=== PATIENT | male | born 1945 | race Caucasian/White ===

== ENCOUNTER → 2018-11-08 | Outpatient (REF) | payer MEDICARE ==
[~2018-11-08] MED LIST: AVODART0.5 MG PO; CIPROFLOXACN500 MG PO; LEVOTHYROXIN100 MC1 PO; PREDNISONE1 MG PO; SIMVASTATIN10 MG PO
[2018-11-08 17:05] LABS: HEMATOCRIT 46.3 % (39.0-50.0); HEMOGLOBIN 15.3 g/dl (14.0-18.0); MEAN CELL VOLUME 92.2 fL CALC (80.0-100.0); MEAN CORPUSCULAR HGB 30.5 pG CALC (26.0-32.0); RED BLOOD COUNT 5.02 mill/uL (4.70-6.10); RED CELL DISTRI WIDTH 12.1 % (11.5-15.5)
[2018-11-08 17:28] LABS: ALBUMIN 4.1 g/dL (3.2-5.0); ALKALINE PHOSPHATASE 78 u/l (38-126); ANION GAP 14 (6-22 (CALC)); BILIRUBIN, TOTAL 0.3 mg/dL (0.0-1.4); BUN 17 mg/dL (8-23); BUN/CREATININE RATIO 17 (12-20 (CALC)); CARBON DIOXIDE 28 mmol/l (22-30); CHLORIDE 101 mmol/l (95-108); GFR > 60 ML/MIN (>=60 (CALC)); GFR FOR AFR.AMER. > 60 ML/MIN (>=60 (CALC)); POTASSIUM 4.7 mmol/l (3.5-5.1); SGOT/AST 27 u/l (19-48); SODIUM 138 mmol/l (137-146); TOTAL PROTEIN 7.2 g/dL (6.3-8.2)
== END | disposition home or self-care (01) ==
LOC: CT 16:00
PROVIDERS: ATTEND Internal Medicine
DX: M54.5 Low back pain (principal); K59.00 Constipation, unspecified; R10.9 Unspecified abdominal pain; W19.XXXA Unspecified fall, initial encounter; E03.9 Hypothyroidism, unspecified; I10 Essential (primary) hypertension; N40.1 Benign prostatic hyperplasia with lower urinary tract symptoms; R01.1 Cardiac murmur, unspecified

== ENCOUNTER 2018-11-17 07:24 | Day surgery (SDC) | payer MEDICARE ==
[2018-11-17 10:44] VITALS: BP 114/71
== END 2018-11-17 10:00 | disposition home or self-care (01) ==
LOC: ENDO 07:24 → ORM 11:15
PROVIDERS: ATTEND Surgery
PROC: 0DB48ZX Excision of Esophagogastric Junction, Via Natural or Artificial Opening Endoscopic, Diagnostic (ICD-10-PCS; principal; 2018-11-17)
PROC: 0DB78ZX Excision of Stomach, Pylorus, Via Natural or Artificial Opening Endoscopic, Diagnostic (ICD-10-PCS; 2018-11-17)
PROC: 0DJD8ZZ Inspection of Lower Intestinal Tract, Via Natural or Artificial Opening Endoscopic (ICD-10-PCS; 2018-11-17)
DX: K59.00 Constipation, unspecified (principal); K29.60 Other gastritis without bleeding; K44.9 Diaphragmatic hernia without obstruction or gangrene; S32.010D Wedge compression fracture of first lumbar vertebra, subsequent encounter for fracture with routine healing; W11.XXXD Fall on and from ladder, subsequent encounter; Z87.891 Personal history of nicotine dependence

== ENCOUNTER 2018-12-08 07:12 | Day surgery (SDC) | payer MEDICARE ==
[2018-12-08] MEDS ORDERED: METAMUCIL28 % PO (07:39)
[2018-12-08 09:29] VITALS: BP 166/92
== END 2018-12-08 09:57 | disposition home or self-care (01) ==
LOC: ORM 07:12
PROVIDERS: ATTEND Anesthesiology Pain Medicine
PROC: 3E0T3BZ Introduction of Anesthetic Agent into Peripheral Nerves and Plexi, Percutaneous Approach (ICD-10-PCS; principal; 2018-12-08)
PROC: 3E0T33Z Introduction of Anti-inflammatory into Peripheral Nerves and Plexi, Percutaneous Approach (ICD-10-PCS; 2018-12-08)
PROC: BR161ZZ Fluoroscopy of Lumbar Facet Joint(s) using Low Osmolar Contrast (ICD-10-PCS; 2018-12-08)
PROC: 3E0T3BZ Introduction of Anesthetic Agent into Peripheral Nerves and Plexi, Percutaneous Approach (ICD-10-PCS; 2018-12-08)
PROC: 3E0T33Z Introduction of Anti-inflammatory into Peripheral Nerves and Plexi, Percutaneous Approach (ICD-10-PCS; 2018-12-08)
DX: M54.5 Low back pain (principal); Z91.81 History of falling

== ENCOUNTER 2018-12-22 06:43 | Day surgery (SDC) | payer MEDICARE ==
[~2018-12-22] VITALS: Ht 177.8 cm; Wt 77.6 kg
[~2018-12-22 06:43] MED LIST changes: +METAMUCIL28 % PO
[2018-12-22 09:55] VITALS: BP 167/88
== END 2018-12-22 09:25 | disposition home or self-care (01) ==
LOC: ORM 06:43
PROVIDERS: ATTEND Anesthesiology Pain Medicine
PROC: 3E0T33Z Introduction of Anti-inflammatory into Peripheral Nerves and Plexi, Percutaneous Approach (ICD-10-PCS; principal; 2018-12-22)
PROC: 3E0T3BZ Introduction of Anesthetic Agent into Peripheral Nerves and Plexi, Percutaneous Approach (ICD-10-PCS; 2018-12-22)
PROC: BR161ZZ Fluoroscopy of Lumbar Facet Joint(s) using Low Osmolar Contrast (ICD-10-PCS; 2018-12-22)
PROC: 3E0T3BZ Introduction of Anesthetic Agent into Peripheral Nerves and Plexi, Percutaneous Approach (ICD-10-PCS; 2018-12-22)
PROC: 3E0T33Z Introduction of Anti-inflammatory into Peripheral Nerves and Plexi, Percutaneous Approach (ICD-10-PCS; 2018-12-22)
DX: M54.5 Low back pain (principal); Z91.81 History of falling

== ENCOUNTER 2019-01-05 06:28 | Day surgery (SDC) | payer MEDICARE ==
[2019-01-05 12:49] VITALS: BP 137/90
== END 2019-01-05 09:25 | disposition home or self-care (01) ==
LOC: ORM 06:28
PROVIDERS: ATTEND Anesthesiology Pain Medicine
PROC: 3E0T3TZ Introduction of Destructive Agent into Peripheral Nerves and Plexi, Percutaneous Approach (ICD-10-PCS; principal; 2019-01-05)
PROC: BR161ZZ Fluoroscopy of Lumbar Facet Joint(s) using Low Osmolar Contrast (ICD-10-PCS; 2019-01-05)
PROC: 3E0T3TZ Introduction of Destructive Agent into Peripheral Nerves and Plexi, Percutaneous Approach (ICD-10-PCS; 2019-01-05)
DX: M54.5 Low back pain (principal); M12.9 Arthropathy, unspecified; M79.2 Neuralgia and neuritis, unspecified; Z91.81 History of falling

== ENCOUNTER 2019-03-02 06:54 | Day surgery (SDC) | payer MEDICARE ==
[~2019-03-02] VITALS: Ht 157.5 cm; Wt 77.1 kg
[~2019-03-02 06:54] MED LIST changes: +TRAMADOL HCL50 MG PO
[2019-03-02 09:01] VITALS: BP 173/91
== END 2019-03-02 09:35 | disposition home or self-care (01) ==
LOC: ORM 06:54
PROVIDERS: ATTEND Anesthesiology Pain Medicine
PROC: 3E0T3TZ Introduction of Destructive Agent into Peripheral Nerves and Plexi, Percutaneous Approach (ICD-10-PCS; principal; 2019-03-02)
PROC: 3E0T3TZ Introduction of Destructive Agent into Peripheral Nerves and Plexi, Percutaneous Approach (ICD-10-PCS; 2019-03-02)
PROC: BR161ZZ Fluoroscopy of Lumbar Facet Joint(s) using Low Osmolar Contrast (ICD-10-PCS; 2019-03-02)
PROC: BR161ZZ Fluoroscopy of Lumbar Facet Joint(s) using Low Osmolar Contrast (ICD-10-PCS; 2019-03-02)
DX: M54.5 Low back pain (principal)

== ENCOUNTER 2021-12-18 10:18 | Observation (INO) | payer MEDICARE ==
[2021-12-18] VITALS (34 sets, daily range): BP systolic 94–158; BP diastolic 56–110
[~2021-12-18] VITALS: Ht 157.5 cm; Wt 75.0 kg
[~2021-12-18 10:18] MED LIST changes: -AVODART0.5 MG PO; +LORATADINE10 M1 PO; +TAMSULOSIN HCL0.4 MG PO
--- NOTE | 2021-12-18 10:18 | NUR ---
PT BROUGHT TO ROOM FROM OUTPATIENT OR W/RAPID HEARTRATE. PT HERE FOR COLONOSCOPY, DURING PREOP TEST WAS FOUND TO HAVE HR OF 161.
[2021-12-18] MEDS ORDERED: AVODART0.5 MG PO (10:56)
[2021-12-18 11:08] LABS: HEMATOCRIT 48.4 % (39.0-50.0); HEMOGLOBIN 15.8 g/dl (14.0-18.0); IMMATURE GRANULOCYTES 0.1 % (0.0-5.0); MEAN CELL VOLUME 92.9 fL CALC (80.0-100.0); MEAN CORPUSCULAR HGB 30.3 pG CALC (26.0-32.0); MEAN CORPUSCULAR HGB CONC 32.6 g/dL CAL (32.0-36.0); NEUT# 4.18 thou/uL (1.82-7.42); RED BLOOD COUNT 5.21 mill/uL (4.70-6.10); RED CELL DISTRI WIDTH 12.9 % (11.5-15.5)
[2021-12-18 11:39] LABS: ALBUMIN 3.9 g/dL (3.2-5.0); ALKALINE PHOSPHATASE 61 u/l (38-126); ANION GAP 13 (6-22 (CALC)); BILIRUBIN, TOTAL 0.7 mg/dL (0.0-1.4); BUN 17 mg/dL (8-23); BUN/CREATININE RATIO 14 (12-20 (CALC)); CARBON DIOXIDE 26 mmol/l (22-30); CHLORIDE 105 mmol/l (95-108); CREATININE 1.2 mg/dL (0.7-1.3); GFR 59 ML/MIN (>=60 (CALC)); GFR FOR AFR.AMER. > 60 ML/MIN (>=60 (CALC)); POTASSIUM 4.6 mmol/l (3.5-5.1); SGOT/AST 32 u/l (19-48); SODIUM 139 mmol/l (137-146); TOTAL PROTEIN 7.3 g/dL (6.3-8.2)
[2021-12-18] MEDS ORDERED: TAMSULOSIN HCL0.4 MG PO (11:47)
[2021-12-18 12:09] LABS: TSH, 3RD GENERATION 1.2 uIU/mL (0.47 - 4.68)
--- NOTE | 2021-12-18 13:00 | NUR ---
REPORT CALLED TO MARKOS SHARPE AT THIS TIME
--- NOTE | 2021-12-18 13:35 | NUR ---
PT TO ROOM PER W/C, ALERT/ORIENTED X3, NO CHEST PAIN, NO PALPITATIONS, NO SOB, MAEW, VITAL SIGNS ATRIAL FLUTTER, BLOOD PRESSURE 148/103,
--- NOTE | 2021-12-18 15:13 | NUR ---
pt up to bedside commode. denies complaints of chest pain or sob. pt watching tv, heart rate remains in the 100's.
--- NOTE | 2021-12-18 16:03 | NUR ---
REASSESSMENT OF PT. NO CHANGES AT THIS TIME
--- NOTE | 2021-12-18 17:17 | NUR ---
PTS AT BEDSIDE, REMAINS IN AFLUTTER 3-1, BLOOD PRESSURE HAS DECREASED TO 126/83, REMAINS PAIN FREE, HAS NO COMPLAINTS, WATCHING TV AND LAUGHING WITH .
[2021-12-19] VITALS (13 sets, daily range): BP systolic 113–149; BP diastolic 84–96
[2021-12-19 06:07] LABS: HEMATOCRIT 47.6 % (39.0-50.0); HEMOGLOBIN 15.6 g/dl (14.0-18.0); MEAN CELL VOLUME 91.9 fL CALC (80.0-100.0); MEAN CORPUSCULAR HGB 30.1 pG CALC (26.0-32.0); MEAN CORPUSCULAR HGB CONC 32.8 g/dL CAL (32.0-36.0); RED BLOOD COUNT 5.18 mill/uL (4.70-6.10); RED CELL DISTRI WIDTH 12.9 % (11.5-15.5)
[2021-12-19 06:11] LABS: ANION GAP 12 (6-22 (CALC)); BUN 21 mg/dL (8-23); BUN/CREATININE RATIO 21 (12-20 (CALC)); CALCULATED LDLCHOLESTEROL 85 mg/dL (62-129 (CALC)); CARBON DIOXIDE 23 mmol/l (22-30); CHLORIDE 105 mmol/l (95-108); CHOLESTEROL HDL RATIO 2.3 (<4.4 (CALC)); GFR > 60 ML/MIN (>=60 (CALC)); GFR FOR AFR.AMER. > 60 ML/MIN (>=60 (CALC)); HDL CHOLESTEROL 71 mg/dL (>=40); POTASSIUM 4.4 mmol/l (3.5-5.1); SODIUM 136 mmol/l (137-146); TOTAL CHOLESTEROL 165 mg/dl (0-199); TOTAL TRIGLYCERIDES 46 mg/dl (30-149); VLDL CHOLESTROL 9 mg/dl (0-38 (CALC))
--- NOTE | 2021-12-19 06:21 | NUR ---
pt report received from night shift manager. pt remains in aflutter, blood pressure remains the same, pt denies any chest pain, denies sob, states had a good night. will continue to reassess
--- NOTE | 2021-12-19 07:30 | NUR ---
REASSEMENT OF PT REMAINS THE SAME, WATCHING TV, ALERT/ORIENTED X3, SITTING UP EATING BREAKFAST
--- NOTE | 2021-12-19 09:04 | NUR ---
DR. WEEMS SPEAKING WITH PT. WILL BE DISCHARGED WITH NEW MEDICATIONS. PT VITAL SIGNS REMAIN THE SAME. AT BEDSIDE.
--- NOTE | 2021-12-19 10:00 | NUR ---
SPEAKING WITH PT AND ADVISED THAT IT STILL COULD BE SEVERAL HOURS BEFORE DISCHARGE.
--- NOTE | 2021-12-19 11:16 | NUR ---
PT REASSESSMENT. VITAL SIGNS STABLE. PT REMAINS IN AFLUTTER, WITH NO SYMPTOMS OF HEART RACING OR PALPITATION FEELING, DENIES ANY SOB.
[2021-12-19] MEDS ORDERED: AMLODIPINE BESYL5 MG PO (11:38)
[2021-12-19] MEDS ORDERED: XARELTO20 MG PO (11:39)
[2021-12-19] MEDS ORDERED: TOPROL XL25 M1 PO (11:39)
--- NOTE | 2021-12-19 12:20 | NUR ---
AFTER SPEAKING WITH OUR DIRECTOR Geoffrey SÁNCHEZ, PT UNDERSTANDS ABOUT HIS AFLUTTER AND WHAT TO LOOK FOR. PT REMAINS SYMPTOM FREE, ALERT/ORIENTED X3, ADVISED WILL EAT LUNCH THEN WE CAN HOPEFULLY GET HIM DISCHARGED BY AROUND 130
--- NOTE | 2021-12-19 13:01 | NUR ---
PT DISCHARGED WITH INST. AND RX. ARRIVED AND PT TAKEN TO OWN VEHICLE PER W/C. THANKED US FOR HIS CARE.
== END 2021-12-19 13:00 | disposition home or self-care (01) ==
LOC: ED 10:46 → ENDO 12:00 → ED-I 12:10 → ED 12:23 → ICU 12:24 → ED 12:24 → ICU 12:24 → ED 13:51 → ICU 12-19 13:00
PROVIDERS: Family Medicine; ADMIT Hospitalist; ATTEND Hospitalist
DX: I48.92 Unspecified atrial flutter (principal); I10 Essential (primary) hypertension; E03.9 Hypothyroidism, unspecified; N40.0 Benign prostatic hyperplasia without lower urinary tract symptoms
CPT/HCPCS: J1650